=== PATIENT | male | born 1970 | race Caucasian/White ===

== ENCOUNTER 2022-07-24 13:04 | Outpatient (REF) | payer OTHER, SELFPAY ==
--- NOTE | ~2022-07-24 | US_ITS ---
EXAMINATION: US RETROPERITONEAL LIMITED (RENAL ONLY) CLINICAL INFORMATION: Kidney stone. Left flank pain.. Ultrasound 01/18/2016. COMPARISON: None TECHNIQUE: Reynaldo grayscale imaging of kidneys and the bladder was performed. FINDINGS: RIGHT KIDNEY: 11.7 x 6.4 x 5.6 cm (SAG x AP x TRV). The kidney is normal in size, contour, and echogenicity. Renal cortical thickness is normal. No calculi or focal parenchymal lesions. No hydronephrosis. There is anechoic cyst in the upper pole measuring 0.10 x 0.55 x 0.60 cm and 1.2 x 1.2 x 1.1 cm. There is a small echogenic stone in the upper pole measuring 0.3 x 0.3 x 0.5 cm. No additional echogenic stones seen. There is no hydronephrosis. LEFT KIDNEY: 12.3 x 6.9 x 6.2 cm (SAG x AP x TRV). The kidney is normal in size, contour, and echogenicity. Renal cortical thickness is normal. No calculi or focal parenchymal lesions. No hydronephrosis. There are anechoic cysts in upper pole measuring 1.9 x 2.2 x 1.6 cm. There is moderate hydronephrosis. There is echogenic stone in the UVJ measuring 0.22 x 0.25 x 0.30 seen. Imaging through the pelvis reveals normal right ureteral jet. Left ureteral jet is absent. The bladder is partially distended. US/US renal BI IMPRESSION: 1. Bilateral renal cysts. 2. Nonobstructive echogenic stone upper pole right kidney. 3. There is moderate hydronephrosis left kidney with a obstructive UVJ stone measuring 0.22 x 0.25 x 0.30 cm.. 4. Normal right ureteral jet. The left ureteral jet is absent.
== END 2022-07-24 13:05 | disposition home or self-care (01) ==
LOC: HO.HMGCX 13:04
PROVIDERS: Absent Provider Urology; Visit Provider Physician Assistant
DX: N20.0 Calculus of kidney (principal)
CPT/HCPCS: 76775

== ENCOUNTER 2022-07-25 12:31 | Emergency (ER) | payer OTHER, SELFPAY ==
--- NOTE | ~2022-07-25 | CT_ITS ---
EXAMINATION: CT ABDOMEN AND PELVIS WITHOUT CONTRAST CLINICAL INFORMATION: Calculi with question of obstruction COMPARISON: Ultrasound kidneys today which demonstrated moderate left-sided hydronephrosis. An obstructing stone at the ureterovesical junction TECHNIQUE: Multidetector volumetric imaging was performed from the superior aspect of the liver through the pubic symphysis. Sagittal and coronal reformatted images were obtained on the technologist's workstation. This CT examination was performed using dose optimization techniques as appropriate, variously including the following: *Automated exposure control *Adjustment of mA and/or kV according to patient size (this includes techniques or standardized protocols for targeted exams where dose is matched to indication/reason for exam; i.e. extremities or head) *Use of iterative reconstruction technique DLP: 1070 mGy-cm FINDINGS: LUNG BASES: The visualized lung bases are unremarkable. LIVER, GALLBLADDER, AND BILIARY TREE: The liver is normal in size, shape, and attenuation. No focal hepatic lesion or biliary ductal dilatation is present. The gallbladder is unremarkable with no evidence of radiopaque gallstones, gallbladder wall thickening, or obvious pericholecystic inflammatory changes. PANCREAS: Unremarkable. SPLEEN: Unremarkable. ADRENAL GLANDS: Unremarkable. KIDNEYS AND URETERS: Left: There is left-sided hydronephrosis and mild perinephric stranding associated with an obstructing calculus in the proximal ureter just beyond the ureteropelvic junction. No stone is seen at the ureterovesical junction. This obstructing stone measures about 900 Hounsfield units and is 6 x 3 x 6 mm in size. There is a nonobstructing calculus in a lower pole calyx on the left measuring 5 mm. At the time of the prior study, a 7 mm calculus is at the same location causing hydronephrosis. No renal masses are seen. Right: The right kidney and ureter appear normal. BLADDER: Unremarkable. No bladder calculi or stones seen at the ureterovesical junction. GASTROINTESTINAL TRACT: The small and large bowel are unremarkable. The appendix is unremarkable. ABDOMINAL WALL: No significant hernia is appreciated. LYMPH NODES: No retroperitoneal lymphadenopathy. VASCULAR: Unremarkable. PELVIC VISCERA: There is mild BPH OSSEOUS STRUCTURES: Mild degenerative changes are seen in the spine at most levels. CT/CT abdomen pelvis wo IV con IMPRESSION: 1. 6 mm obstructing proximal left ureteral calculus with associated hydronephrosis. 2. Nonobstructing 5 mm calculus lower pole left kidney. 3. Mild BPH. 4. There is no stones seen at the left ureterovesical junction and no bladder calculi are present Fleischner guidelines were followed.
[2022-07-25 12:48] VITALS: BP 147/99; PULSE 78; RESP 18; TEMP 36.6; O2SAT 97; BMI 32.5
--- NOTE | 2022-07-25 12:53 | ED_ITS ---
HPI - Male Genitourinary General Chief complaint: Back Pain/Injury <Travon Acevedo MD - Last Filed: 07/25/22 12:55> Stated complaint: Kidney stone <Travon Acevedo MD - Last Filed: 07/25/22 12:55> Time Seen by Provider: 07/25/22 15:47 <Travon Acevedo MD - Last Filed: 07/25/22 12:55> Source: patient <Harper LomasBEVERLY - Last Filed: 07/25/22 18:58> Mode of arrival: ambulatory <Harper EspinozaBEVERLY hdz - Last Filed: 07/25/22 18:58> Limitations: no limitations <Harper EspinozaBEVERLY hdz - Last Filed: 07/25/22 18:58> History of Present Illness HPI Narrative: Patient is a 51-year-old male presents to the emergency department 2 days of left flank pain and associated nausea and vomiting. Reports a known history of kidney stones, which have been treated in the past with lithotripsy. However he states no issues for the past couple of years. He was evaluated at urgent care yesterday, states that he had an ultrasound obtained, and there was concern about the stone being obstructive and he was advised to come to the emergency department. He states that he continues to have pain. Does not radiate to the abdomen. Denies fevers, chills, nausea, vomiting, dysuria, hematuria, urinary frequency/ urgency. Subjectively he states that he has been urinating small amounts than normal. <Harper EspinozaBEVERLY hdz - Last Filed: 07/25/22 18:58> Related Data Home medications: Previous Rx's Medication Instructions Recorded ibuprofen 600 mg tablet 600 mg PO Q8H PRN pain #30 tabs 07/25/22 oxycodone 5 mg tablet 5 mg PO Q8H PRN pain #10 tabs 07/25/22 tamsulosin 0.4 mg capsule (Flomax) 0.4 mg PO DAILY #14 caps 07/25/22 <Travon Acevedo MD - Last Filed: 07/25/22 12:55> Allergies/Adverse reactions: Allergies Allergy/AdvReac Type Severity Reaction Status Date / Time No Known Allergies Allergy Unverified 07/24/22 12:09 [No Known Allergies*] <Travon Acevedo MD - Last Filed: 07/25/22 12:55> Review of Systems Review of Systems: Constitutional : No Weight loss, No Fever, No Chills ENT/Mouth :? No sore throat, No Rhinorrhea Eyes: No Swelling, No Redness Cardiovascular : No Chest Pain, No SOB, No Edema Respiratory : No Cough, No Sputum, No Wheezing Gastrointestinal : no Nausea, no Vomiting, no Diarrhea, No abdominal pain, positive flank pain No Hematochezia, No Melena Genitourinary : No Dysuria, No Urinary Frequency, No Hematuria, No Urgency? Musculoskeletal : No joint pain, No Myalgias, No Joint Swelling Skin : No Skin Lesions, No rash <Harper Lomas CNP - Last Filed: 07/25/22 18:58> Yes all other systems are reviewed and are negative <Harper Lomas CNP - Last Filed: 07/25/22 18:58> PMFSH Past Medical History Attestation statement: The following information was validated with the patient. <Harper Lomas CNP - Last Filed: 07/25/22 18:58> Source: old records reviewed <Harper Lomas CNP - Last Filed: 07/25/22 18:58> Social History Social History: Social History Alcohol intake: never Smoked in Last 30 Days: No Use of substances other than those prescribed or required for medical reasons: No Advance Directives: Yes Advance Directives Information Provided: Yes Advance Directives on File: No <Travon Acevedo MD - Last Filed: 07/25/22 12:55> Physical Exam Vital Signs: Vital Signs: Last Vital Signs Temp 98.1 F 07/25/22 17:42 Pulse 68 07/25/22 17:42 Resp 20 07/25/22 17:42 BP 142/89 H 07/25/22 17:42 Pulse Ox 98 07/25/22 17:42 O2 Del Method 07/25/22 17:42 BMI result Body Mass Index 32.5 <Travon Acevedo MD - Last Filed: 07/25/22 12:55> Vital Signs: Last Vital Signs Temp 98.1 F 07/25/22 17:42 Pulse 68 07/25/22 17:42 Resp 20 07/25/22 17:42 BP 142/89 H 07/25/22 17:42 Pulse Ox 98 07/25/22 17:42 O2 Del Method 07/25/22 17:42 BMI result Body Mass Index 32.5 <Harper Lomas CNP - Last Filed: 07/25/22 18:58> Appearance: Alert.?Oriented to person, place and time. No acute distress.?Normal affect. Eyes: Pupils equal, round and reactive to light.? ENT: Pharynx normal.?? Neck: Normal inspection.? Neck supple.?? CVS: Heart sounds normal. Normal heart rate and rhythm.? Pulses normal.?? Respiratory: No respiratory distress.? Lung sounds clear to auscultation bilaterally?? Abdomen: Soft and non-tender. Normoactive bowel sounds. left CVA tenderness Skin: Skin warm and dry.? Normal skin color.? ? Extremities: No lower extremity edema.? Neuro: Moves all extremities spontaneously. Sensation intact bilaterally. Ambulates with normal steady gait. <Harper Lomas CNP - Last Filed: 07/25/22 18:58> Course Course Course Narrative: Patient is a 51-year-old male with a past medical history of nephrolithiasis. Evaluated at urgent care yesterday, had ultrasound obtained which revealed hydronephrosis on the left with a 3 mm stone potentially blocking the UVJ. He was advised to come to the emergency department yesterday. At this time, he reports the pain to be mild. Has been able to eat and drink. today. urinalysis and CT of the abdomen and pelvis to evaluate for nephrolithiasis, obstructive and stone, hydronephrosis. Patient to receive ketorolac IV for pain. Orders entered from [facility], IV placed by nursing staff, initially no labs ordered, declines having labs obtained at this time to evaluate for ARGELIA. <Harper Lomas CNP - Last Filed: 07/25/22 18:58> Reevaluation(s) Reevaluation #1: 51 yo male with history of kidney stones presents with left lower flank pain x several days. Ultrasound yesterday showed stone on the right. Patient's provider suggested coming to ED for additional evaluation, concern over whether the stone is stuck . Pain currently mild. <Travon Acevedo MD - Last Filed: 07/25/22 12:55> Time: 12:54 <Travon Acevedo MD - Last Filed: 07/25/22 12:55> Reevaluation #2: Spoke with Urology Dr. Garza, advises that if patient is comfortable, tolerating oral intake he may be discharged home with Flomax, and outpatient follow-up. Discussed these findings with patient. He verbalized understanding is agreeable with plan. Discussed worrisome signs and symptoms return back to emergency department for. Prescription for Flomax and oxycodone sent to patient's pharmacy. <Harper Lomas CNP - Last Filed: 07/25/22 18:58> Time: 18:46 <Harper Lomas CNP - Last Filed: 07/25/22 18:58> Medications Administered Discontinued Medications Generic Name Dose Route Start Last Admin Trade Name Freq PRN Reason Stop Dose Admin Ketorolac Tromethamine 15 mg 07/25/22 12:50 07/25/22 15:53 Ketorolac Tromethamine 15 Mg/Ml Vial IVPUSH 07/25/22 12:51 15 mg ONCE ONE Administration <Travon Acevedo MD - Last Filed: 07/25/22 12:55> Medications Administered Discontinued Medications Generic Name Dose Route Start Last Admin Trade Name Freq PRN Reason Stop Dose Admin Ketorolac Tromethamine 15 mg 07/25/22 12:50 07/25/22 15:53 Ketorolac Tromethamine 15 Mg/Ml Vial IVPUSH 07/25/22 12:51 15 mg ONCE ONE Administration <Harper Lomas CNP - Last Filed: 07/25/22 18:58> MDM - Male Genitourinary Medical Records Attestation: I reviewed the patient's medical records. <Harper Lomas CNP - Last Filed: 07/25/22 18:58> Lab Data Attestation: I reviewed the patient's lab results. <Harper Lomas CNP - Last Filed: 07/25/22 18:58> Labs: Lab Results 07/25/22 Range/Units 17:39 Urine Color Yellow Urine Appearance Clear Urine pH 5.5 (5.0-9.0) Ur Specific [place] 1.010 (1.005-1.025) Urine Protein Negative (Neg-Trace) mg/dL Urine Glucose (UA) Negative (Negative) mg/dL Urine Ketones Negative (Negative) mg/dL Urine Blood Trace H (Negative) Urine Nitrite Negative (Negative) Ur Leukocyte Esterase Negative (Negative) Urine RBC 0-2 (0-2) /HPF Urine WBC 0-5 (0-5) /HPF Ur Squamous Epith Cells 0-2 (0-2) /HPF Urine Bacteria None Seen (None Seen) Hyaline Casts 0-2 (0-2) /LPF <Travon Acevedo MD - Last Filed: 07/25/22 12:55> Lab Results 07/25/22 Range/Units 17:39 Urine Color Yellow Urine Appearance Clear Urine pH 5.5 (5.0-9.0) Ur Specific [place] 1.010 (1.005-1.025) Urine Protein Negative (Neg-Trace) mg/dL Urine Glucose (UA) Negative (Negative) mg/dL Urine Ketones Negative (Negative) mg/dL Urine Blood Trace H (Negative) Urine Nitrite Negative (Negative) Ur Leukocyte Esterase Negative (Negative) Urine RBC 0-2 (0-2) /HPF Urine WBC 0-5 (0-5) /HPF Ur Squamous Epith Cells 0-2 (0-2) /HPF Urine Bacteria None Seen (None Seen) Hyaline Casts 0-2 (0-2) /LPF <Harper Lomas CNP - Last Filed: 07/25/22 18:58> Imaging Data CT scan - abdomen: Radiologist's impression: CT/CT abdomen pelvis wo IV con IMPRESSION: 1.? 6 mm obstructing proximal left ureteral calculus with associated hydronephrosis. 2.? Nonobstructing 5 mm calculus lower pole left kidney. 3.? Mild BPH. 4.? There is no stones seen at the left ureterovesical junction and no bladder calculi are present ? Fleischner guidelines were followed. <Harper Lomas CNP - Last Filed: 07/25/22 18:58> Discharge Plan Discharge Clinical Impression: Left nephrolithiasis, Renal colic, Hydronephrosis <Travon Acevedo MD - Last Filed: 07/25/22 12:55> Patient Disposition: Home, Self-Care <Travon Acevedo MD - Last Filed: 07/25/22 12:55> Instructions: Kidney Stones (ED), Hydronephrosis (ED) <Travon Acevedo MD - Last Filed: 07/25/22 12:55> Additional Instructions: - You can take ibuprofen 200 mg, 3 tablets (600mg) every 6-8 hours. Take Flomax daily. For severe pain unrelieved with ibuprofen you may take oxycodone, this is an opiate medication, may make drowsy, you should not drive, work, or drink alcohol while taking this medication. - As discussed, return to the emergency department with new or worsening symptoms or concerns. If you are unable to tolerate the pain despite the use ibuprofen and oxycodone, if you develop nausea with persistent vomiting, inability to urinate you should come back to the emergency department right away. - Contact Urology to arrange for outpatient follow-up. <Travon Acevedo MD - Last Filed: 07/25/22 12:55> Prescriptions: New tamsulosin [Flomax] 0.4 mg capsule 0.4 mg PO DAILY Qty: 14 0RF ibuprofen 600 mg tablet 600 mg PO Q8H PRN (Reason: pain) Qty: 30 0RF oxycodone 5 mg tablet 5 mg PO Q8H PRN (Reason: pain) Qty: 10 0RF Rx Instructions: Partial Fill upon patient request. <Travon Acevedo MD - Last Filed: 07/25/22 12:55> Referrals: Myra Garza MD [Physician] - <Travon Acevedo MD - Last Filed: 07/25/22 12:55>
[2022-07-25] MEDS: Ketorolac Tromethamine 15 MG/ML VIAL IVPUSH (15:53)
[2022-07-25 17:42] VITALS: BP 142/89; PULSE 68; RESP 20; TEMP 36.7; O2SAT 98
[2022-07-25 17:58] LABS: Appearance Urine Clear; Color Urine Yellow; Glucose Urine UA Negative (Negative); Leukocyte Esterase Urine Negative (Negative); Nitrite Urine Negative (Negative); PH 5.5 (5.0-9.0); UMIC TRIGGER UACC YES; Urine Blood Trace (Negative); Urine Ketones Negative (Negative); Urine Protein Negative (Neg-Trace)
[2022-07-25 18:03] LABS: Bacteria Urine None Seen (None Seen); Hyaline Casts Urine 0-2 /LPF (0-2); RBC Urine 0-2 /HPF (0-2); Squamous Epithelial Cell Urine 0-2 /HPF (0-2); WBC Urine 0-5 /HPF (0-5)
== END 2022-07-25 19:58 | disposition home or self-care (01) ==
PROVIDERS: Nurse Practitioner Family; Emergency Provider Internal Medicine; PCP Pediatrics
DX: N13.2 Hydronephrosis with renal and ureteral calculous obstruction (principal)
CPT/HCPCS: 74176; 81001; 96374; 99284; J1885

== ENCOUNTER 2022-08-09 09:28 | Day surgery (SDC) | payer OTHER, SELFPAY ==
[2022-08-09] VITALS (26 sets, daily range): BP systolic 129–176; BP diastolic 60–102; PULSE 51–76; RESP 16–20; TEMP 36.2–36.8; O2SAT 94–100; BMI 32.5
--- NOTE | ~2022-08-09 | XR_ITS ---
EXAMINATION: XR ABDOMEN KUB CLINICAL INDICATION: Pre ESWL COMPARISON: 03/24/2022 TECHNIQUE: AP view of the abdomen. FINDINGS: 0.4 cm calcification overlies the lower pole of the left kidney. The left ureteral calculus is not definitively seen. Phleboliths overlie the pelvis. Normal bowel gas pattern. Mild degenerative changes of the spine. XR/XR KUB IMPRESSION: 0.4 cm calcification overlies the lower pole of the left kidney. The left ureteral calculus is not definitively seen.
--- NOTE | ~2022-08-09 | US_ITS ---
EXAMINATION: US RETROPERITONEAL LIMITED (RENAL ONLY) CLINICAL INFORMATION: Pain status post left ESWL. COMPARISON: Prior ultrasound July 2022 TECHNIQUE: Bilateral renal ultrasound. FINDINGS: RIGHT KIDNEY: 11.4 x 6.2 x 5.3 cm (SAG x AP x TRV). There are cysts upper pole 1.5 x 1.4 x 1.1 cm and 0.6 x 0.5 x 0.6 cm. The kidney is normal in size, contour, and echogenicity. Renal cortical thickness is normal. No calculi or focal parenchymal lesions. No hydronephrosis. LEFT KIDNEY: 10.6 x 5.1 x 5.4 cm (SAG x AP x TRV). Cyst upper pole 1.3 x 1.5 x 1.6 cm, echogenic focus middle pole probably nonobstructing stone 4 mm. Heterogeneous hypoechoic area anterior to the left kidney within the subcapsular region 10.7 x 3.2 x 5.5 cm concerning for possible hematoma. US/US renal BI IMPRESSION: * Heterogeneous hypoechoic area anterior to the left kidney 10.7 x 3.2 x 5.5 cm concerning for possible hematoma. Concern for possible subcapsular hematoma around the left kidney. Consider correlation with follow-up CT scan. * There are bilateral renal cysts. * Nonobstructing stone left kidney. (Referring physician staff is being called, to be alerted of the above findings and recommendations.) AJ
--- NOTE | 2022-08-09 11:39 | HO.ANESPROP2 ---
HPI - Anesthesia Eval Consult details Narrative: 52 yo male patient for Left ESWL PMFSH Active Problems Active Problems: All Active Problems (Updated 08/03/22 @ 16:18 by Myra Garza MD) Kidney stone on left side (Acute) Ureteral stone with hydronephrosis (Acute) Ureteral stone (Acute) Increased BMI Family History Family history of problems with anesthesia: No Surgical History History of Problems with Anesthesia: No Social History Social History Alcohol intake: never Patient Tobacco Use Status: Never used Tobacco Use of substances other than those prescribed or required for medical reasons: No Are you DNR?: No Advance Directives: No Advance Directives Information Provided: Yes Meds Allergies Allergy/AdvReac Type Severity Reaction Status Date / Time No Known Allergies Allergy Verified 08/03/22 14:24 [No Known Allergies*] Exam Exam Date and Time: August 09, 2022 1139 Height,Weight and Vital Signs: Height 6 ft 3 in Weight 117.934 kg Last Vital Signs Temp 97.6 F 08/09/22 11:07 Pulse 68 08/09/22 11:30 Resp 16 08/09/22 11:07 BP 131/90 H 08/09/22 11:30 Pulse Ox 95 08/09/22 11:07 O2 Del Method 08/09/22 11:07 Airway Mallampati Class: II TM Dist: >3cm Neck ROM: Full Loose/Missing/Broken Teeth: No (Top front teeth bonded. Denies broken or loose teeth) Heart: RRR Lungs: CTAB Assessment and Plan Assessment Anesthesia Assessment: Anesthesia Plan Discussed and Chart Reviewed Final Anesthetic Review Family History of Problems with Anesthesia: No History of Problems with Anesthesia: No NPO: Yes ASA Class: II Final Preanesthetic Review: No Changes in Pt Med Stat, Meds/Allgs Chart Reviewed, Consent Obtained/Reviewed and Anes Risks/Benef Reviewed Patient Risk: Low Procedure Risk: Low Assessment/Block/Sedation in SS: Assess/Block/Sedation-SS Anesthetic Plan Anesthetic Plan: GA and MAC: Disposition: Standard PACU
--- NOTE | 2022-08-09 12:16 | MHC.SHP ---
Pre-Procedural Eval Section A Date of Service: 08/09/22 The patient is an INPATIENT: No Section B Chief Complaint: Calculus of kidney Details of Present Illness: Jacob was seen in the emergency room 07/25/22 left flank pain. He had a CT scan done noting a 6 mm left proximal ureteral stone with mild to moderate hydronephrosis also a 5 mm lower pole stone in the left kidney was seen. Allergies: Allergies Allergy/AdvReac Type Severity Reaction Status Date / Time No Known Allergies Allergy Verified 08/03/22 14:24 [No Known Allergies*] Plan Diagnosis/Plan: Change I have reviewed the history and physical and performed a pertinent physical examination on my patient. No changes have occurred unless specified. Discussed ESWL left proximal ureteral stone. Patient passed stone and brought in today. KUB today notes persistent Left lower pole renal stone. Will proceed with Left kidney ESWL on left lower pole stone. Discussed risks to include but not limited to, blood in the urine, bruising to the skin, kidney hematoma, possible need for another procedure if a stone fragment obstructs the ureter while passing, possible need to repeat procedure if stone is not completely fragmented.
[2022-08-09] MEDS: Lactated Ringers 1,000 ML 100 ML IVCONT (12:19)
--- NOTE | 2022-08-09 13:18 | P.OP_ITS ---
Operative Note Operative Note Date of Service: 08/09/22 Narrative: PreOperative Diagnosis:? ? Left Renal stone Post Operative Diagnosis:?Left? Renal stone Procedure:?Left? ESWL Surgeon:?Dr Myra Garza Anesthesia:? MAC Indications for procedure: The patient understands ESWL may be a staged procedure and subsequent intervention may be required based on imaging after ESWL.? They also understand? there is a risk of bleeding to the kidney, infection, damage to adjacent organs, and stone migration following the procedure. - Imaging KUB 5 mm left kidney lower pole stone Procedure: After informed consent was verified the patient was brought to the operating room and placed in a supine position.? IV Sedation was performed per protocol. Safety pause time-out was performed. Imaging was displayed in the room and laterality confirmed. ESWL was performed.?The stone was visualized on both fluoroscopy and ultrasoun d.? Shockwave lithotripsy was performed, the first 300 shocks at 60 hertz.? A pause for 3 minutes.? A total of 2000 shocks to a maximum of power of 20 with a maximum rate of 120 hertz.? Good fragmentation of the stone was appreciated. The patient tolerated the procedure well and was transferred to the recovery area upon completion. Complications: None
[2022-08-09] MEDS: fentaNYL citrate/PF 100 MCG/2 ML VIAL 50 MCG IVPUSH ×6 (14:29→16:23)
[2022-08-09] MEDS: oxyCODONE HCl Immed Release 5 MG TABLET 10 MG PO (14:39)
[2022-08-09] MEDS: Acetaminophen 1,000 MG/100 ML PIGGYBACK 400 MG IV (15:20)
[2022-08-09] MEDS: HYDROmorphone HCl 0.5 MG/0.5 ML SYRINGE 0.25 MG IVPUSH (16:49)
--- NOTE | 2022-08-09 17:17 | PC.NURSE ---
Dr. Gardner at bedside with ordered to admit patient and stat ultrasound
[2022-08-09] MEDS: LORazepam 2 MG/ML VIAL 1 MG IVPUSH (17:37)
[2022-08-09] MEDS: 0.9 % Sodium Chloride 1,000 ML 125 ML IVCONT (20:09)
[2022-08-09] MEDS: 0.9 % Sodium Chloride Flush 3 ML SYRINGE IVFLUSH (20:10)
[2022-08-09] MEDS: HYDROmorphone HCl 1 MG/ML SYRINGE 0.5 MG IVPUSH (20:43)
[2022-08-10] VITALS: BP 136/67; PULSE 78; RESP 18; TEMP 37; O2SAT 95
[2022-08-10] MEDS: HYDROmorphone HCl 1 MG/ML SYRINGE 0.5 MG IVPUSH ×2 (00:36→04:20)
[2022-08-10] MEDS: 0.9 % Sodium Chloride Flush 3 ML SYRINGE IVFLUSH (00:38)
[2022-08-10 03:19] VITALS: BP 132/69; PULSE 72; RESP 16; TEMP 36.6; O2SAT 94
[2022-08-10] MEDS: 0.9 % Sodium Chloride 1,000 ML 125 ML IVCONT (04:13)
[2022-08-10 07:45] VITALS: BP 129/77; PULSE 81; RESP 17; TEMP 36.8; O2SAT 93
[2022-08-10 08:47] LABS: Basophils Percent Auto 0.5 % (0-2); Eosinophils Absolute Auto 0.1 X10*3/uL (0.0-0.4); Hematocrit 38.7 % (42.0-52.0); Hemoglobin 12.9 g/dl (14.0-18.0); Imm Gran Abs Auto 0.02 X10*3/uL (0.00-0.03); Imm Gran Pct Auto 0.2 % (0.0-0.4); Lymphocytes Absolute Auto 1.1 X10*3/uL (1.2-4.9); Lymphocytes Percent Auto 12.2 % (20-40); MANUAL DIFF FLAG NO; Mean Corpuscular HGB Conc 33.3 g/dl (31.0-36.0); Mean Corpuscular Hemoglobin 28.4 pg (27.0-33.0); Mean Corpuscular Volume 85.1 fL (80.0-98.0); Mean Platelet Volume 8.4 fL (9.4-12.4); Monocytes Absolute Auto 0.8 X10*3/uL (0.1-1.2); Monocytes Percent Auto 9.5 % (2-11); Neutrophils Absolute Auto 6.6 x10*3/uL (2.0-8.3); Neutrophils Percent Auto 76.6 % (45-73); Platelet Count 155 X10*3/uL (160-400); Red Blood Count 4.55 X10*6/uL (4.60-5.80); Red Cell Distribution Width 12.7 % (11.0-16.0); White Blood Count 8.6 X10*3/uL (4.8-10.8)
[2022-08-10 09:03] LABS: Anion Gap 10 (12-20); Blood Urea Nitrogen 13 mg/dL (9-16); Calcium 8.2 mg/dL (8.4-10.2); Carbon Dioxide 26 mmol/L (22-29); Chloride 105 mmol/L (96-108); Creatinine Clr Calc Pharmacy 89.2; Estimated Glomerular Filt Rate 57; Glucose Random 126 mg/dL (60-115); Potassium 3.9 mmol/L (3.3-5.1); Sodium 137 mmol/L (135-145)
--- NOTE | 2022-08-10 09:14 | PM.UROPN ---
Subjective Subjective Date of Service: 08/11/22 Patient reports: pain is less and voiding w/o difficulty Interval history: Jacob is s/p Left ESWL 08/09/22, he had severe left flank pain in RR and a renal u/s noted renal subscabular hematoma, no hydronephrosis. IVF's Normal saline overnight. Hb 12.9, BUN/creat 13/1.3. Cont gentle hydration. pain management. Continue Bedrest. ?? Physical Exam Vital Signs: Vital Signs: Last Vital Signs Temp 98.2 F 08/10/22 07:45 Pulse 81 08/10/22 07:45 Resp 17 08/10/22 07:45 BP 129/77 08/10/22 07:45 Pulse Ox 93 08/10/22 07:45 O2 Del Method 08/10/22 07:45 BMI result Body Mass Index 32.5 Const: General: healthy appearing, no acute distress and well developed Orientation/consciousness: patient oriented x3 HEENT: Head: Yes normocephalic and Yes atraumatic Eyes: Conjunctivae: conjunctivae normal Neck: Neck: Yes normal visual inspection Chest: Chest palpation & inspection: normal inspection of the chest Resp: Effort & Inspection: normal respiratory effort Cardio: Rate: regular rate GI: Inspection: Yes normal to inspection Palpation (GI): Soft to palpation : General: Yes CVA tenderness (left) Back/Spine/Pelvis: Back: CVA tenderness (left) Skin: General skin exam: no rashes or lesions noted Neuro: General: patient oriented x3 Extrem: General: No pedal edema Psych: Appearance: grossly normal Affect: normal affect Urology Results Labs CBC & Chem 7: 08/10/22 08:35 08/10/22 08:35 Labs: Laboratory Results - last 24 hr 08/10/22 08/10/22 08:35 08:35 WBC 8.6 RBC 4.55 L Hgb 12.9 L Hct 38.7 L MCV 85.1 MCH 28.4 MCHC 33.3 RDW 12.7 Plt Count 155 L MPV 8.4 L Immature Gran % (Auto) 0.2 Neut % (Auto) 76.6 H Lymph % (Auto) 12.2 L [place] % (Auto) 9.5 Eos % (Auto) 1.0 Baso % (Auto) 0.5 Lymph # (Auto) 1.1 L [place] # (Auto) 0.8 Eos # (Auto) 0.1 Baso # (Auto) 0.0 Abs Immat Gran (auto) 0.02 Absolute Neuts (auto) 6.6 Absolute Nucleated RBC 0.000 Nucleated RBC % (auto) 0.0 Sodium 137 Potassium 3.9 Chloride 105 Carbon Dioxide 26 Anion Gap 10 L BUN 13 Creatinine 1.31 Estim Creat Clear Calc 89.2 Estimated GFR 57 Random Glucose 126 H Calcium 8.2 L Progress Note: A&P Assessment and plan (1) Kidney stone on left side: Status: Acute (2) Kidney hematoma: Status: Acute (3) Left flank pain: Status: Acute Plan Cont IVF - lactated ringers Pain mainagement Bedrest Time Spent With Patient Time: Total time spent is greater than 50% in coordination of care (as documented) at patient's floor/unit and/or counseling patient:
[2022-08-10] MEDS: HYDROcodone Bit/Acetam 7.5/325 TABLET 1 TAB PO ×3 (09:21→19:59)
[2022-08-10] MEDS: Lactated Ringers 1,000 ML 75 ML IVCONT ×2 (09:41→21:48)
--- NOTE | 2022-08-10 14:14 | HO.POSTANES ---
Post Anesthesia Evaluation Post Anesthesia Evaluation Vital Signs: Vital Signs Temp Pulse Resp BP Pulse Ox O2 Del Method 08/10/22 07:45 98.2 F 81 17 129/77 93 Room Air 08/10/22 03:19 97.8 F 72 16 132/69 94 Room Air Anesthesia: Monitored Mental Status: Awake Pain Control: Satisfactory Nausea/Vomiting: None Hydration: Adequate Anesthesia-Related Issues: No Anes. Related Issues
[2022-08-10 15:11] VITALS: BP 110/54; PULSE 81; RESP 18; TEMP 37; O2SAT 94
[2022-08-10] MEDS: Acetaminophen 325 MG TABLET 650 MG PO (15:26)
--- NOTE | 2022-08-10 15:32 | MHC.CM.PN ---
PATIENT STILL ASLEEP AND NOT RESPONDING TO ATTEMPTS FOR A CASE MANAGEMENT ASSESSMENT. CM NAME AND DC PLAN WRITTEN ON WHITE BOARD
[2022-08-10 19:36] VITALS: BP 108/64; PULSE 88; RESP 18; TEMP 37.1; O2SAT 98
[2022-08-10 23:32] VITALS: BP 139/76; PULSE 78; RESP 16; TEMP 36.4; O2SAT 94
[2022-08-11 03:10] VITALS: BP 133/80; RESP 18; TEMP 36.6; O2SAT 94
[2022-08-11] MEDS: HYDROmorphone HCl 1 MG/ML SYRINGE 0.5 MG IVPUSH (06:10)
[2022-08-11 08:00] VITALS: BP 136/76; PULSE 77; RESP 18; TEMP 36.4; TEMP 36.8; O2SAT 95
--- NOTE | 2022-08-11 10:47 | PM.UROPN ---
Subjective Subjective Date of Service: 08/11/22 Patient reports: feels better, still having pain, pain is less, tolerating a regular diet and voiding w/o difficulty Interval history: Jacob is s/p Left ESWL 08/09/22, he had severe left flank pain in RR and a renal u/s noted renal subscabular hematoma, no hydronephrosis. Voiding without difficulty, urine tea colored. D/C home. Continue Bedrest. ?? Physical Exam Vital Signs: Vital Signs: Last Vital Signs Temp 97.6 F 08/11/22 08:00 Pulse 77 08/11/22 08:00 Resp 18 08/11/22 08:00 BP 136/76 08/11/22 08:00 Pulse Ox 95 08/11/22 08:00 O2 Del Method Nasal Cannula 08/11/22 08:00 BMI result Body Mass Index 32.5 Const: General: healthy appearing, no acute distress and well developed Orientation/consciousness: patient oriented x3 HEENT: Head: Yes normocephalic and Yes atraumatic Eyes: Conjunctivae: conjunctivae normal Neck: Neck: Yes normal visual inspection Chest: Chest palpation & inspection: normal inspection of the chest Resp: Effort & Inspection: normal respiratory effort Cardio: Rate: regular rate GI: Inspection: Yes normal to inspection Palpation (GI): Soft to palpation : General: Yes CVA tenderness (left) Back/Spine/Pelvis: Back: CVA tenderness (left) Skin: General skin exam: no rashes or lesions noted Neuro: General: patient oriented x3 Extrem: General: No pedal edema Psych: Appearance: grossly normal Affect: normal affect Urology Results Labs CBC & Chem 7: 08/10/22 08:35 08/10/22 08:35 Progress Note: A&P Assessment and plan (1) Kidney stone on left side: Status: Acute (2) Kidney hematoma: Status: Acute (3) Left flank pain: Status: Acute Plan D/C Home Cont bedrest x 2 weeks Ceftin 500mg bid for 5 days FU renal sono in about 10-12 weeks Time Spent With Patient Time: Total time spent is greater than 50% in coordination of care (as documented) at patient's floor/unit and/or counseling patient:
--- NOTE | 2022-08-11 11:51 | PC.NURSE ---
discharge instructions given. Pt states understanding and agrees with disachage plan
== END 2022-08-11 11:50 | disposition home or self-care (01) ==
LOC: HO.SSS 13:20 → HO.S3 19:41
PROVIDERS: PCP Pediatrics; Visit Provider Urology
PROC: (CPT 50590; principal; 2022-08-09 11:00)
DX: N13.2 Hydronephrosis with renal and ureteral calculous obstruction (principal); N99.840 Postprocedural hematoma of a genitourinary system organ or structure following a genitourinary system procedure; Y83.8 Other surgical procedures as the cause of abnormal reaction of the patient, or of later complication, without mention of misadventure at the time of the procedure; Y92.234 Operating room of hospital as the place of occurrence of the external cause
CPT/HCPCS: 50590; 36415; 74018; 76775; 80048; 85025; J0131; J0690; J1170; J2060; J2250; J2550; J3010

== ENCOUNTER → 2022-08-25 13:08 | Outpatient (BNVA) | payer OTHER, SELFPAY | PROVIDERS: PCP Pediatrics; Visit Provider Urology | DX: R10.9 Unspecified abdominal pain (principal) ==

== ENCOUNTER 2022-10-30 15:39 | Outpatient (REF) | payer OTHER, SELFPAY ==
--- NOTE | ~2022-10-30 | US_ITS ---
EXAMINATION: US RETROPERITONEAL LIMITED (RENAL ONLY) CLINICAL INFORMATION: Calculus of kidney. COMPARISON: Renal ultrasound 08/09/2022 and 07/24/2022. X-ray abdomen KUB 08/09/2022. CT abdomen and pelvis 07/25/2022. TECHNIQUE: Real-time imaging of the kidneys. FINDINGS: RIGHT KIDNEY: 11.1 x 6.4 x 5.8 cm (SAG x AP x TRV). The kidney is normal in size, nodular contour and normal echogenicity. Renal cortical thickness is normal. No hydronephrosis. The upper pole right renal cyst measuring 1.3 x 1.3 x 1.2 cm and 0.7 x 0.8 x 0.7 cm. There is a nonobstructive echogenic stone lower pole measuring 0.4 x 0.3 x 0.4 cm. LEFT KIDNEY: 12.0 x 6.7 x 4.9 cm (SAG x AP x TRV). The kidney is normal in size, contour, and echogenicity. Renal cortical thickness is normal. No hydronephrosis. There is anechoic cyst upper pole measuring 1.8 x 2.0 x 1.8 cm. There is isoechoic exophytic mass lower pole. It measures 1.6 x 1.2 1.4 cm. Perinephric hematoma appears improved since the last exam 08/09/2022. Incidental finding of a small echogenic stone in midpole measuring 0.3 x 0.3 x 0.3 cm. There is no caliectasis. US/US renal BI IMPRESSION: Bilateral nonobstructive echogenic renal calculi. There are bilateral renal cysts. There is a hypoechoic mass partially exophytic in the lower pole measuring [address] or MRI kidney with and without contrast. Left renal perinephric hematoma has improved.
== END 2022-10-30 15:40 | disposition home or self-care (01) ==
LOC: HO.US 15:39
PROVIDERS: PCP Pediatrics; Visit Provider Urology
DX: N20.0 Calculus of kidney (principal)
CPT/HCPCS: 76775

== ENCOUNTER → 2022-11-03 11:23 | Outpatient (BNVA) | payer OTHER, SELFPAY | PROVIDERS: PCP Pediatrics; Visit Provider Urology | DX: Z13.9 Encounter for screening, unspecified (principal); N20.0 Calculus of kidney | CPT/HCPCS: 51798 ==